=== PATIENT | female | born 1985 | race Caucasian/White ===

== ENCOUNTER 2018-03-02 17:36 | Emergency (ER) | payer MEDICAID, SELFPAY ==
[2018-03-02 17:37] VITALS: BP 161/96; PULSE 107; RESP 20; TEMP 37.2; O2SAT 100; BMI 35.9
[2018-03-02 17:48] VITALS: O2SAT 100
--- NOTE | 2018-03-02 17:49 | RAD_ITS ---
STUDY: X-RAY CHEST REASON FOR EXAM: Female, 33 years old. Chest pain. TECHNIQUE: PA and lateral views of the chest. COMPARISON: November 16, 2015 FINDINGS: The lungs are clear and expanded. There is no demonstrated pleural abnormality. Normal size heart. Normal mediastinum and edvin. Normal visualized pulmonary arteries. Normal visualized aortic arch and descending thoracic aorta. There are diffuse degenerative changes of the visualized thoracic spine. Normal visualized ribs, clavicles, and shoulders. There is no demonstrated abnormality of the visualized soft tissue structures of the upper abdomen. RAD/Chest PA and Lateral IMPRESSION: No acute cardiopulmonary process. Electronically Signed: Nighat Jain MD at 18:15 EDT Tel , Service support ,
[2018-03-02] MEDS: Albuterol 2.5 MG/3 ML VIAL.NEB. INHALATION (18:08)
[2018-03-02 18:09] VITALS: PULSE 106; RESP 16
--- NOTE | 2018-03-02 18:12 | ED.DCSUM_ITS ---
- ER Visit Summary Date of Service: 03/02/18 Chief Complaint: Shortness of breath History of Present Illness: The patient is a 33 F who states that she has been short of breath all day since yesterday. She states is better when she stands up. She feels like she cannot catch her breath when she sits down. Denies a cough or chest pain. She felt like she was wheezing at some point. No history of asthma or COPD. She is a smoker. She did nothing for this at home. No DVT or PE risk factors. Denies any leg swelling. She does complain of some right paraspinal neck tenderness to palpation. Physical Examination: Vital signs reviewed. HEENT exam unremarkable. Does have some right-sided trapezius tenderness. Heart is regular rate and rhythm without murmurs. Lungs are clear to auscultation. Abdomen is soft and nontender. Extremities reveal no edema. Skin exam normal. Neurologic exam normal. Test Results: Chest x-ray and d-dimer are normal Emergency Department Course and Treatment: Patient was given albuterol treatment without any significant relief. I believe that some of her shortness of breath may be anxiety related. She was tearful when the nurse was in the room. I have no suspicion for PE as her d-dimer is normal. No signs of pneumonia. Her lung sounds are actually clear. I will give her an inhaler that she may use if she gets short of breath. She will use NSAIDs over-the- counter for her trapezius strain. She needs to follow-up with her PCP for further outpatient testing Treatment Plan: [] Disposition: Discharge Impression: Dyspnea, trapezius strain This note was generated with [employer] dictation software. It may contain incorrect words, spelling, and punctuation that were not noted in review of the chart prior to signing ED Disposition - Plan for ED Patient: Chief Complaint: Shortness of Breath Referrals: Praveen Neal MD [Primary Care Provider] -
[2018-03-02] MEDS: LORazepam 1 MG Tablet PO (18:22)
[2018-03-02 18:52] LABS: D-Dimer Quantitative (DVT/PE) 0.41 FEU/ug/m (0.27-0.49)
--- NOTE | 2018-03-02 19:00 | ED.DEP ---
ED Disposition - Plan for ED Patient: Disposition: Home or Assisted Living Chief Complaint: Shortness of Breath Instructions: ED Dyspnea Shortness of Breath Prescriptions: Albuterol Inhaler [Ventolin Hfa] 1 - 2 puff INHALATION Q4H PRN PRN #1 inhaler PRN Reason: Wheezing Referrals: Praveen Neal MD [Primary Care Provider] -
[2018-03-02 19:18] VITALS: PULSE 81; RESP 18; O2SAT 100
== END 2018-03-02 19:19 | disposition home or self-care (01) ==
PROVIDERS: Emergency Provider Emergency Medicine; Family Provider Family Medicine; PCP Family Medicine
DX: R06.00 Dyspnea, unspecified (principal); S16.1XXA Strain of muscle, fascia and tendon at neck level, initial encounter; F17.200 Nicotine dependence, unspecified, uncomplicated; X58.XXXA Exposure to other specified factors, initial encounter; Y93.89 Activity, other specified; Y92.89 Other specified places as the place of occurrence of the external cause; Y99.8 Other external cause status
CPT/HCPCS: 71046; 85379; 94640; 99283; A4216

== ENCOUNTER 2019-01-22 19:16 | Emergency (ER) | payer MEDICAID, SELFPAY ==
[2019-01-22 19:17] VITALS: BP 125/86; PULSE 86; RESP 16; TEMP 36.4; O2SAT 100; BMI 34.9
--- NOTE | 2019-01-22 20:41 | ED.DCSUM_ITS ---
History of Present Illness Chief Complaint: Abscess Narrative: Patient presented secondary to facial abscess and multiple body lesions. Patient reports over the course last 24 hours she has had emergence of a left- sided simmons infection. She also reports that she has a left gluteal area that appears to be infected. She was seen in outside facility and was started on Bactrim. Patient reports over the course last 24 hours however she has had increase in the swelling especially of her left simmons. She denies any cons titutional symptoms such as fever. Pain is moderate worse with palpation and with opening closing of her mouth. She denies any trismus. Review of systems otherwise negative. Past Medical History - Allergies and Home Meds Allergies/Adverse Reactions: Allergies No Known Allergies Allergy (Verified 03/02/18 17:37) Primary Care Physician: Praveen Neal MD [Primary Care Provider] - 2 Days for wound check Surgical History: noncontributory Smoking Status: Current every day smoker Review of Systems All systems negative except as indicated General: Denies: Fever Skin: Reports: Abscess Physical Exam Vital Signs/Narrative: Vital Signs Temp Pulse Resp BP Pulse Ox 01/22/19 19:17 97.6 F L 86 16 125/86 H 100 Inital Vital Signs reviewed: Yes General: Well nourished, Well developed, No Acute Distress Head: Normocephalic, Atraumatic, - - Induration noted at the patient's left chin with a small area of fluctuance and overlying erythema. ENT: Moist mucous membranes, No rhinorrhea Neck: Supple, Nontender Cardiovascular: Regular rate, Regular rhythm, No murmurs Respiratory: No distress, CTA bilaterally, Chest nontender : - - Examination the patient's left gluteal cleft shows evidence of an area of induration with mild overlying erythema, no fluctuance Skin: Rash Neurological: Alert Diagnostic/Tx/Re-eval - Medical Decision Making Patient presented secondary to a chin abscess. Bedside ultrasound was obtained and did show an area of fluctuance. Incision and drainage was was performed as noted in the procedure note. Patient seems to have colonization likely with staff, she was given Bactroban ointment to be used on top of her Bactrim. She was recommended warm compresses. Patient was discharged with follow-up with primary care. Procedures Procedure(s): Patient was verbally consented for incision and drainage of abscess to the left side of her chin. Area was prepped with an alcohol prep. The area of greatest fluctuance was incised using a very small stab incision using an 11 blade. Purulent material was expressed. Loculations were broken with hemostats. Patient tolerated this well. ED Disposition - Plan for ED Patient: Disposition: Home or Assisted Living Diagnosis: Facial abscess Instructions: ED Skin Infec MRSA Suspect Conf Prescriptions: Mupirocin [Bactroban] 1 applic TOPICAL TID #1 tube Referrals: Praveen Neal MD [Primary Care Provider] - 2 Days for wound check
[2019-01-22 20:53] VITALS: PULSE 79; RESP 20
== END 2019-01-22 20:54 | disposition home or self-care (01) ==
PROVIDERS: Emergency Provider Emergency Medicine; Family Provider Family Medicine; PCP Family Medicine
DX: L02.01 Cutaneous abscess of face (principal); F17.200 Nicotine dependence, unspecified, uncomplicated
CPT/HCPCS: 10060; 99283

== ENCOUNTER 2019-01-25 20:33 | Emergency (ER) | payer MEDICAID, SELFPAY ==
[2019-01-25 20:34] VITALS: BP 120/86; PULSE 90; RESP 16; TEMP 36.7; O2SAT 99; BMI 35.4
--- NOTE | 2019-01-25 21:02 | CT_ITS ---
STUDY: CT BRAIN WITHOUT CONTRAST REASON FOR EXAM: Female, 33 years old. Facial left-sided numbness RADIATION DOSAGE (If Supplied By Facility): CTDIvol = ( 44.99 ) mGy, DLP = ( 762.36 ) mGycm TECHNIQUE: Transaxial CT imaging of the brain was performed without administration of intravenous contrast material. Individualized dose optimization techniques were used for this CT. COMPARISON: No relevant priors. FINDINGS: Normal soft tissue structures. Normal calvarium. Normal size ventricles and extra-axial spaces for the patient's age. Normal white matter tracts of the cerebral hemispheres. Normal basal ganglia and thalami. Normal brainstem. Normal cerebellum. There is no intracranial hemorrhage. There are no findings of an acute ischemic infarction. Normal visualized paranasal sinuses. CT/Brain/Head without Contrast IMPRESSION: Normal unenhanced CT scan of the brain. Electronically Signed: Francois Bruno, at 22:29 EDT Tel , Service support ,
--- NOTE | 2019-01-25 21:02 | EKG12_ITS ---
Test Reason : CP Blood Pressure : / mmHG Vent. Rate : 099 BPM Atrial Rate : 099 BPM P-R Int : 114 ms QRS Dur : 084 ms QT Int : 362 ms P-R-T Axes : 032 051 052 degrees QTc Int : 464 ms Normal sinus rhythm Normal ECG Confirmed by JARROD BAKER, TARAN ([id number]), managing editor GERI WADSWORTH ([id number]) on 01/29/2019 11:47:23 AM Referred By: Confirmed By:LIZETTE GARAY MD
--- NOTE | 2019-01-25 21:10 | RAD_ITS ---
STUDY: X-RAY CHEST REASON FOR EXAM: Female, 33 years old. Chest pain TECHNIQUE: Portable chest COMPARISON: 03/02/2018 FINDINGS: The lungs are clear and expanded. There is no demonstrated pleural abnormality. There is mild left ventricular prominence. Normal mediastinum and edvin. Normal visualized pulmonary arteries. Normal visualized aortic arch and descending thoracic aorta. Normal visualized thoracic spine. Normal visualized ribs, clavicles, and shoulders. There is no demonstrated abnormality of the visualized soft tissue structures of the upper abdomen. RAD/Chest 1 View (Portable) IMPRESSION: Mild left ventricular prominence Electronically Signed: Francois Bruno, at 22:06 EDT Tel , Service support ,
[2019-01-25] MEDS: LORazepam 2 MG/ML Syringe 1 MG IV (21:24)
[2019-01-25] MEDS: Ketorolac 30 MG/ML Syringe IV (21:26)
[2019-01-25] MEDS: 0.9% Normal Saline 1,000 ML 1000 ML IV (21:28)
[2019-01-25 21:40] LABS: Absolute Lymphocyte Count 2.38 X10^3/ul (0.83-4.51); Absolute Neutrophil Count 6.3 X10^3/uL (2.0-7.7); Basophil# 0.04 X10^3/uL; Basophil% 0.4 % (0-1); Eosinophil# 0.26 X10^3/uL; Eosinophils% 2.7 % (0-5); Hemoglobin 10.7 g/dl (12.0-15.0); Lymphocyte # 2.38 X10^3/ul (4.0); Lymphocyte % 24.4 % (19-41); Mean Corp Hgb Conc 31.5 g/gl (32-36); Mean Corpuscular Hgb 25.8 pg (27.0-32.0); Mean Corpuscular Volume 82.1 fL (81-99); Mean Platelet Vol. 9.7 fl (6.2-12.0); Monocyte# 0.74 X10^3/uL; Monocyte% 7.6 % (0-10); Neutrophil # 6.29 X10^3/uL (2.7-7.7); Neutrophil % 64.5 % (47-70); POSITIVE COUNT NO; POSITIVE DIFFERENTIAL NO; POSITIVE MORPHOLOGY NO; Platelet Count 453 K/mm3 (150-450); RBC Distribution Width CV 15.4 % (11.6-14.6); RBC Distribution Width SD 45.9 fl (35.1-43.9); Red Blood Count 4.14 M/mm3 (4.2-5.4); White Blood Count 9.8 K/mm3 (4.4-11.0)
[2019-01-25 21:51] VITALS: PULSE 93; RESP 16; O2SAT 98
[2019-01-25 21:53] LABS: Anion Gap 5 (5-15); BUN 17 mg/dL (7-18); Calcium,Total 9.1 mg/dL (8.5-10.1); Chloride 104 mmol/L (98-107); Creatinine, Serum 0.94 mg/dL (0.55-1.02); EST Glomerular Filtration Rate 71 mL/min (>60); Est Glom Filt Rate - Afr Amer 86 mL/min (>60); Estimated Creatinine Clearance 63.03 ml/min; Glucose 83 mg/dL (74-106); Sodium Level 137 mmol/L (136-145)
[2019-01-25] MEDS: Morphine 4 MG/ML Syringe IV (22:56)
--- NOTE | 2019-01-25 23:17 | ED.DCSUM_ITS ---
- ER Visit Summary Date of Service: 01/25/19 Chief Complaint: Facial abscess History of Present Illness: The patient is a [address] Praveen Neal. She reports that she has an abscess to her chin that began 4 days ago. She was seen in the emergency department 3 days ago and had an I&D performed. She was placed on Bactrim. She reports that the area feels like it is enlarging again. She complains of a sharp pain that is 10 out of 10 severity. Is worsened by nothing relieved by nothing. She denies any dental pain. No fever or chills. On review of systems patient complains that she has a sharp chest pain that began approximately 30 minutes ago while she was at rest. Is 8 out of 10 severity. Nothing makes this worse including exertion and deep breaths. Nothing makes this better. She does report that she is mildly short of breath with it. She denies any associated vomiting or diaphoresis. She reports that she feels nauseated, but relates that to the Bactrim. Patient also complains that she has paresthesias to the entire left side of her body. This includes her face, upper and lower extremities, chest, and abdomen. Physical Examination: Vitals: Stable. Afebrile. General: Well-nourished and well-developed. Head: Normocephalic atraumatic. Neck: Supple, no lymphadenopathy. No JVD. Nontender. Cardiovascular: Regular rate and rhythm. No murmurs. Respiratory: No respiratory distress. Clear to auscultation bilaterally. Abdominal: Soft, nontender, nondistended, normal bowel sounds. No guarding, rebound, or peritoneal signs. Back: Nontender. Extremities: Nontender, no edema. Skin: To the left side of her chin there is a 3 cm indurated, erythematous area with no appreciable fluctuance. She also has a 2 cm indurated area with minimal erythema to her left buttock.. Neurologic: Alert and oriented ?3. Cranial nerves II through XII are intact. N ormal strength and sensation. Despite the fact the patient complains of tingling in her simmons to light touch is normal. Psych: Depressed affect and tearful. Anxious. Denies suicidal or homicidal soraida ation. No auditory visual hallucinations. Test Results: EKG is sinus at 99 with no acute changes. CBC shows an H&H of 10.7 34.0, platelets 453. Chem-[address] brain is normal. Chest x-ray shows no acute disease. Emergency Department Course and Treatment: Patient was initially given a dose of Toradol and Ativan IV. Prior to her incision and drainage she was given dose of morphine IV. She was also given doxycycline IV. She is resting comfortably. Treatment Plan: With the abscess being on the patient's face she will be discharged instructions to follow-up with Dr. Pavon in 4 days for another exam. She will be switched from Bactrim to doxycycline. Given a prescription for 12 Percocet. Return to the emergency department for any worsening symptoms. Disposition: To home in improved and stable condition. Impression: 1 1. Abscess to chin. 2. Abscess to left buttock. 3. Incision and drainage. 4. Anxiety. Procedure Note: Abscess was cleansed with chlorhexidine soap. Anesthetized with 1% lidocaine without epinephrine. An incision was made with an 11 scalpel blade. A moderate amount of pus was drained. Curved hemostats were used to break up loculations. The wound was copiously irrigated with normal saline. It was loosely packed with iodoform gauze. The patient tolerated it well. This note was generated with [employer] dictation software. It may contain incorrect words, spelling, and punctuation that were not noted in review of the chart prior to signing ED Disposition - Plan for ED Patient: Instructions: ABSCESS, Incision and Drainage Prescriptions: Doxycycline 100 mg PO BID #20 capsule Oxycodone HCl/Acetaminophen [Percocet 5/325] 1 tablet PO Q6H PRN PRN 3 Days #12 tablet PRN Reason: Pain Referrals: Praveen Neal MD [Primary Care Provider] - 2 Days for wound check Miguelito Pavon MD [STAFF PHYSICIAN] - 3-5 Days
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
== END 2019-01-26 00:56 | disposition home or self-care (01) ==
PROVIDERS: Emergency Provider Emergency Medicine; Family Provider Family Medicine; PCP Family Medicine
DX: L02.01 Cutaneous abscess of face (principal); L02.31 Cutaneous abscess of buttock; F41.9 Anxiety disorder, unspecified; F90.9 Attention-deficit hyperactivity disorder, unspecified type; Z87.442 Personal history of urinary calculi; Z72.0 Tobacco use; Z79.899 Other long term (current) drug therapy
CPT/HCPCS: 10060; 70450; 71045; 80048; 85025; 93005; 96365; 96366; 96375; 99285; J7030; A4216

== ENCOUNTER 2020-02-24 09:17 | Emergency (ER) | payer MEDICAID, SELFPAY ==
[2020-02-24 09:19] VITALS: BP 158/75; PULSE 91; RESP 18; TEMP 36.4; O2SAT 98; BMI 41.0
[2020-02-24 09:33] VITALS: BP 134/83; PULSE 89; RESP 17; O2SAT 99
[2020-02-24 09:34] VITALS: O2SAT 99
--- NOTE | 2020-02-24 09:47 | EKG12_ITS ---
Test Reason : Blood Pressure : / mmHG Vent. Rate : 085 BPM Atrial Rate : 085 BPM P-R Int : 118 ms QRS Dur : 088 ms QT Int : 396 ms P-R-T Axes : 035 033 -04 degrees QTc Int : 471 ms Normal sinus rhythm Normal ECG Confirmed by JOSE BAKER, TRISTEN ([id number]), editor school photograph HOLLY STEWART ([id number]) on 02/27/2020 9:01:50 AM Referred By: ZAHRA Confirmed By:TRISTEN GARCIA MD
--- NOTE | 2020-02-24 09:47 | RAD_ITS ---
STUDY: X-RAY CHEST REASON FOR EXAM: Female, 35 years old. SOB, CP, BODY ACHES -- X 3 DAYS TECHNIQUE: AP upright portable view. COMPARISON: 01/25/2019. FINDINGS: Pulmonary hypoinflation. The lungs remain clear. There is no demonstrated pleural abnormality. Normal size heart. Normal mediastinum and edvin. Normal visualized pulmonary arteries. Normal visualized aortic arch and descending thoracic aorta. Normal visualized thoracic spine. Normal visualized ribs, clavicles, and shoulders. There is no demonstrated abnormality of the visualized soft tissue structures of the upper abdomen. RAD/Chest 1 View (Portable) IMPRESSION: Normal limited inspiratory chest and unchanged when compared to 01/25/2019. Electronically Signed: Vamshi Garza MD at 11:07 EDT , Service support ,
--- NOTE | 2020-02-24 09:48 | ED.DCSUM_ITS ---
- ER Visit Summary Date of Service: 02/24/20 Chief Complaint: Right-sided chest pain History of Present Illness: The patient is a 35 F daily and kidney stones. Prior cholecystectomy and C-sections. They states her last 3 days she has had some right-sided chest discomfort with mild shortness of breath. No cough or fever. Said she had nausea vomiting x1. She describes it as a burning pain. There is no significant family history of cardiac disease at a young age other than one uncle. She has had no recent travel surgery or hospitalization. No hemoptysis. There is no family history of clotting disorder or DVT or PEs. She is never had a DVT or PE. She denies any calf pain or swelling. Physical Examination: Middle-aged female no acute distress vital signs are stable afebrile. Pulse ox 9 9% on room air no signs hypoxia. H EENT exam unremarkable. Neck nontender no lymphadenopathy no JVD. Lungs clear to auscultation bilaterally. Heart regular rate and rhythm no murmur rate about 85. Chest wall nontender. Abdomen soft nontender normal bowel sounds no peritoneal signs. Extremities moves all 4. Calves are nontender without edema or cords. 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 Normal dorsi plantarflexion. Equal symmetrical radial pulses. Back nontender. Neurologically she is awake alert with no focal motor deficits. Test Results: EKG shows a normal sinus rhythm rate 85 with no acute signs of SC or ischemia. No changes from prior EKG from November 2015. Chest x-ray 1 view shows no acute abnormality. Normal cardiac silhouette mediastinum. EKG shows a sinus rhythm rate 85 with no acute signs of SC or ischemia and unchanged from prior EKG from 2016. CBC unremarkable other than chronic anemia hemoglobin 10 which she has had before in the past. Chemistries unremarkable normal creatinine gap. Troponin normal. D-dimer slightly elevated 0.5. For that reason and the atypical nature of her pain a CTA of the chest was obtained. Read by the radiologist and reviewed by me. No signs of acute PE nor dissection. Emergency Department Course and Treatment: Patient has atypical right-sided chest pain. She really has no risk factors for DVT or PE. She undergo cardiac work-up which might pre-test clinical suspicion is low. She is a smoker. I will do a d-dimer due to the pain being right-sided. Multiple repeat exams patient is doing well at 12:55 PM. We went over all of her test results. She will be discharged home. Treatment Plan: Motrin for pain. Follow-up with her primary care physician for further evaluation if not improving. Return to emergency department if feeling worse. Disposition: dc Impression: Acute atypical right-sided chest pain of uncertain etiology This note was generated with [employer] dictation software. It may contain incorrect words, spelling, and punctuation that were not noted in review of the chart prior to signing ED Disposition - Plan for ED Patient: Referrals: Praveen Neal MD [STAFF PHYSICIAN] -
[2020-02-24 10:06] VITALS: O2SAT 99
[2020-02-24 10:07] LABS: Absolute Lymphocyte Count 1.95 X10^3/uL (0.83-4.51); Absolute Neutrophil Count 6.5 X10^3/uL (2.0-7.7); Basophil# 0.05 X10^3/uL; Basophil% 0.5 % (0-1); Eosinophil# 0.38 X10^3/uL; Hematocrit 34.7 % (37-47); Hemoglobin 10.1 g/dL (12.0-15.0); Lymphocyte # 1.95 X10^3/ul (4.0); Lymphocyte % 20.8 % (19-41); Mean Corp Hgb Conc 29.1 g/dL (32-36); Mean Corpuscular Hgb 21.1 pg (27.0-32.0); Mean Corpuscular Volume 72.6 fL (81-99); Mean Platelet Vol. 8.9 fl (6.2-12.0); Monocyte# 0.44 X10^3/uL; Monocyte% 4.7 % (0-10); NRBC Flagged by Analyzer 0 % (0-5); Neutrophil # 6.51 X10^3/uL (2.7-7.7); Neutrophil % 69.4 % (47-70); Platelet Count 484 K/mm3 (150-450); RBC Distribution Width CV 16.9 % (11.6-14.6); RBC Distribution Width SD 43.7 fl (35.1-43.9); Red Blood Count 4.78 M/mm3 (4.2-5.4); White Blood Count 9.4 K/mm3 (4.4-11.0)
[2020-02-24 10:33] LABS: Anion Gap 7 (5-15); BUN 14 mg/dL (7-18); Chloride 106 mmol/L (98-107); Creatinine, Serum 0.78 mg/dL (0.55-1.02); EST Glomerular Filtration Rate 89 mL/min (>60); Est Glom Filt Rate - Afr Amer 107 mL/min (>60); Estimated Creatinine Clearance 74.52 ml/min; Glucose 108 mg/dL (74-106); Potassium 3.9 mmol/L (3.5-5.1); Sodium Level 139 mmol/L (136-145)
--- NOTE | 2020-02-24 10:56 | CT_ITS ---
STUDY: CTA CHEST REASON FOR EXAM: Female, 35 years old. SOB, CP X 3 DAYS, NAUSEA, RADIATION DOSAGE (If Supplied By Facility): CTDIvol = ( 14.45 ) mGy, DLP = ( 485.36 ) mGycm TECHNIQUE: The examination was performed with the intravenous administration of IV 100mL Isovue-370. Post-processing of the angiographic images was performed, with multiplanar reformation and 3D reconstruction. Individualized dose optimization techniques were used for this CT. COMPARISON: Chest x-ray. FINDINGS: Normal enhancement of the main pulmonary artery and right and left pulmonary arteries. Normal enhancement of the bilateral peripheral pulmonary arteries. There is no demonstrated pulmonary embolism. Normal thoracic aorta and visualized great vessels. There is no demonstrated aortic dissection. Normal heart and pericardium. Normal mediastinum. Normal hilar regions. Normal visualized trachea and bronchi. The lungs are well expanded. Normal pulmonary parenchyma. Normal pleura. Normal chest wall structures. Mild degenerative change of the spine. Normal visualized upper abdomen. CT/CTA Chest W/WO Contrast IMPRESSION: Normal CTA chest examination, without a demonstrated pulmonary embolism or arterial dissection. Electronically Signed: Ed Nettles MD at 12:23 EDT , Service support ,
[2020-02-24 11:21] VITALS: BP 115/71; PULSE 84; RESP 18; O2SAT 100
--- NOTE | 2020-02-24 12:57 | ED.DEP ---
ED Disposition - Plan for ED Patient: Disposition: Home or Assisted Living Instructions: ED Chest Pain Atypical Unkn Cause Referrals: Praveen Neal MD [STAFF PHYSICIAN] - 3-5 Days if not improving Additional Instructions: Motrin for pain. Follow-up with your primary care physician if not improving. Return if feeling worse. All your tests, EKG, chest x-ray and CAT scan today were all unremarkable.
[2020-02-24 13:09] VITALS: BP 117/87; PULSE 81; RESP 14; O2SAT 99
== END 2020-02-24 13:10 | disposition home or self-care (01) ==
PROVIDERS: Emergency Provider Emergency Medicine; PCP Family Medicine
DX: R07.89 Other chest pain (principal); R06.00 Dyspnea, unspecified; Z72.0 Tobacco use
CPT/HCPCS: 71045; 71275; 80048; 84484; 85025; 85379; 93005; 99284; Q9967

== ENCOUNTER 2020-03-10 02:44 | Emergency (ER) | payer MEDICAID, SELFPAY ==
[2020-03-10 02:46] VITALS: BP 143/98; PULSE 98; RESP 22; TEMP 36.8; O2SAT 98; BMI 41.1
--- NOTE | 2020-03-10 02:47 | ED.VIS.GEN ---
History of Present Illness Chief Complaint: Allergic Reaction Informant: Patient Narrative: Patient presents for evaluation after having a reaction to a spray she used for lice. She states the brand name was read. She states that she sprayed it on her living room furniture. She did not know she was not supposed to spread on her bed sheets. She states that she was initially fine. She got up to wash her hair with the raid brand shampoo and that is when she noticed that her face was burning. She also states her skin is burning on her back. She states that her eyes are burning and her tongue is stinging. Did irrigate her eyes. She also washed all of the spray off of her and cleaned her hair again. Past Medical History - Allergies and Home Meds Allergies/Adverse Reactions: Allergies No Known Allergies Allergy (Verified 02/24/20 09:19) Primary Care Physician: Praveen Best MD [Primary Care Provider] - Prior records reviewed: Yes Surgical History: noncontributory Lives: With Family Smoking Status: Current every day smoker Drugs: None Review of Systems General: Denies: Chills, Fever, Malaise Eyes: Reports: - - Bilateral eye burning and injection ENT: Reports: - - Throat burning and tingling. Denies: Bilateral ear pain Cardiovascular: Denies: Chest pain, Palpitations Respiratory: Denies: Dyspnea, Cough Gastrointestinal: Denies: Abdominal pain, Nausea, Vomiting Genitourinary: Denies: Dysuria Skin: Reports: Rash Neurological: Denies: Headache, Weakness Allergy: Denies: Uticaria, Swelling of the mouth, Swelling of the tongue Physical Exam Inital Vital Signs reviewed: Yes General: Well nourished Head: Normocephalic Eyes: - - Bilateral sclera are injected. Eyes are watering. Neck: Supple, Nontender Cardiovascular: Regular rate, Regular rhythm Respiratory: No distress, CTA bilaterally Skin: Rash - Erythema to the face with some mild swelling around the eyes. Neurological: Alert, Oriented x3 Psychological: Normal affect Diagnostic/Tx/Re-eval - Medical Decision Making Presents with scleral injection she has concern she got either the bedding spray or the shampoo in her eyes and now her eyes are irritated. I did put tetracaine in her bilateral eyes. Exam is limited because the patient has a hard time keeping her eyes open to examine them. She said she felt foreign body sensation in the right eye. I did irrigate this with sterile saline. I attempted to look for a foreign body over the patient could not keep her eye open on the right exam. And open her bilateral eyes when not being examined. She was offered a slit-lamp examination with fluorescein however she does not think she will be able to tolerate this. Given her irritation in the right eye I will treat her as corneal abrasion. She is given first dose of erythromycin ophthalmic here in the ED. She was given Acular eyedrops for home as well as Benadryl. Impression: #1 allergic reaction to RID spray/shampoo #2 probable corneal abrasion right eye ED Disposition - Plan for ED Patient: Disposition: Home or Assisted Living Diagnosis: Cornea abrasion Instructions: ED General Allergic Reactions, ED Corneal Abrasion Prescriptions: Ketorolac Tromethamine [Acular] 1 drp OP 4X/DAY PRN PRN #1 drops PRN Reason: pain Transmission Status: Pending to [id number] DiphenhydrAMINE [Benadryl] 25 mg PO BID PRN PRN #20 cap PRN Reason: Itching Transmission Status: Pending to [id number] Referrals: Praveen Best MD [Primary Care Provider] -
[2020-03-10] MEDS: DiphenhydrAMINE 12.5 MG/5 ML UDC 25 MG PO (03:01)
[2020-03-10] MEDS: Mag Hydrox/Al Hydrox/Simeth 30 ML UDC PO (03:02)
[2020-03-10] MEDS: Tetracaine 0.5% Ophthalmic Bottle 1 DRP EACH EYE (03:03)
--- NOTE | 2020-03-10 03:05 | ED.RN ---
pt c/o that something is in her eye. md attempted to flush her eye but pt refused. md offered to black light the eye and pt said she can not keep her eye open. Pt c/o it is painful
[2020-03-10] MEDS: Fluorescein 1 MG STRIP 1 STRIP RIGHT EYE (03:15)
--- NOTE | 2020-03-10 03:35 | ED.RN ---
Pt c/o eye pain md aware. oxyir ordered. Md offered again to flush or black light the eye but pt refused
[2020-03-10] MEDS: Erythromycin Base 1 OPTH.TUBE 1 APPLIC OPHTHALMIC (03:37)
[2020-03-10 03:38] VITALS: BP 134/78; PULSE 70; RESP 17; O2SAT 97
[2020-03-10] MEDS: oxyCODONE 5 MG Tablet PO (03:43)
== END 2020-03-10 03:50 | disposition home or self-care (01) ==
PROVIDERS: Emergency Provider Student in an Organized Health Care Education/Training Program; PCP Family Medicine
DX: T78.49XA Other allergy, initial encounter (principal); F17.200 Nicotine dependence, unspecified, uncomplicated
CPT/HCPCS: 99283; A4216

== ENCOUNTER 2021-04-14 00:05 | Emergency (ER) | payer MEDICAID, SELFPAY ==
[2021-04-14 00:07] VITALS: BP 124/86; PULSE 94; RESP 12; TEMP 37; O2SAT 99; BMI 40.7
[2021-04-14] MEDS: Ondansetron 4 MG/2 ML Vial IV (00:36)
--- NOTE | 2021-04-14 01:47 | EDS_ITS ---
HPI History of Present Illness Chief Complaint: Overdose Narrative Narrative: Patient presenting secondary to an accidental overdose. Patient reportedly had EMS dispatched because she became unresponsive after injecting something in a syringe. She did respond to Narcan. Patient tells me that she was injecting which she thought was methamphetamine. She did not believe that it was opiates. She denies that she was trying to injure herself. Patient reports that she feels nauseous she denies any other somatic symptoms currently. [facility] Medical History Anxiety Depression Substance abuse Allergy/AdvReac Type Severity Reaction Status Date / Time No Known Allergies Allergy Verified 02/24/20 09:19 Social History Smoking Status: Current every day smoker tobacco type: cigarettes ROS ROS ED Constitutional Constitutional ED: Denies chills, fever(s) or weight loss Eyes Eyes: Denies change in vision ENT ENT ED: Denies rhinorrhea or sore throat Cardiovascular Cardiovascular: Denies chest pain Respiratory/Chest Respiratory/Chest: Denies cough Gastrointestinal Gastrointestinal: Reports nausea Genitourinary Genitourinary ED: Denies dysuria Musculoskeletal Musculoskeletal: Denies myalgias Integumentary Denies rash Neurologic Neurologic: Denies paresthesias or weakness Psychiatric Psychiatric: Denies suicidal ideation Endocrine Endocrinology: Denies polydipsia or polyuria Hematologic/Lymphatic Hematologic/Lymphatic: Denies easy bleeding or easy bruising Allergic/Immunologic Allergic/Immunologic ED: Denies urticaria EXAM Physical Exam Const Vital Signs: 04/14/21 00:07 04/14/21 01:54 Temperature 98.6 F Temperature Source Temporal Pulse Rate 94 97 Respiratory Rate 12 16 Blood Pressure 124/86 H 163/88 H Blood Pressure Mean 98 Pulse Ox 99 100 Positive well nourished and well developed Constitutional Narrative: Patient is somewhat unkempt but otherwise not in physiologic distress General Appearance ED: well developed HEENT atraumatic; Negative for tenderness Eyes EOMs intact bilaterally General Eye ED: Negative for pale conjunctiva or scleral icterus Neck no lymphadenopathy and supple Chest Wall inspection of chest normal Resp normal respiratory effort and clear to auscultation bilaterally Cardio regular rhythm, no murmurs and peripheral pulses 2+ throughout Rate: tachycardic GI soft to palpation, non-tender, non-distended and no masses Extremity General Extremety ED: Negative for edema or tenderness General Extremity: Negative for edema Neuro oriented x3 and no sensory deficits noted Sensorium / Orientation: alert Motor Exam: strength 5/5 throughout Psych mental status grossly normal Psych Narrative: No suicidal homicidal ideations, no signs of hallucinations Skin Skin Narrative: Track sherwood are noted on the patient's left arm Lesions: no lesions Rashes: no rashes MDM MDM MDM Narrative Medical decision making narrative: Patient presented secondary to an accidental overdose. She was placed on continuous monitoring. She was not at risk for intentional overdose. She was observed over the course of around 2 hours, did not have any desaturation she was given Zofran for treatment of her symptoms. Repeat evaluation the patient does not wish to undergo drug rehab, detox, or treatment. I implored upon her the importance of seeking help. Patient was discharged in stable condition. Discharge Plan Triage Chief Complaint: Overdose ED Provider: Dusty Ho Dx/Rx/DC Orders Clinical Impression: Opiate overdose, Methamphetamine addiction Instructions: ED Drug Abuse, ED Overdose, Opiate Primary Care Provider: Praveen Best Referrals: Counseling,Center [GROUP OF PHYSICIANS] - As soon as possible Praveen Best MD [Primary Care Provider] - Activity Restrictions/Additional Instructions: You will from your drug addiction if you do not get some help. Please seek help soon before it is too late Disposition Disposition: Home, Self Care Discharge Date/Time: 04/14/21 01:54
[2021-04-14 01:54] VITALS: BP 163/88; PULSE 97; RESP 16; O2SAT 100
== END 2021-04-14 01:54 | disposition home or self-care (01) ==
PROVIDERS: Emergency Provider Emergency Medicine; PCP Family Medicine
DX: T43.621A Poisoning by amphetamines, accidental (unintentional), initial encounter (principal); F15.20 Other stimulant dependence, uncomplicated; F17.210 Nicotine dependence, cigarettes, uncomplicated
CPT/HCPCS: 96374; 99285; A4216; J2405

== ENCOUNTER 2021-07-12 03:11 | Emergency (ER) | payer MEDICAID, SELFPAY ==
[2021-07-12 03:13] VITALS: BP 159/123; PULSE 78; RESP 16; TEMP 36.8; O2SAT 100; BMI 35.7
--- NOTE | 2021-07-12 03:27 | RAD_ITS ---
STUDY: X-RAY CHEST REASON FOR EXAM: Female, 36 years old. chest pain TECHNIQUE: Single AP portable view of the chest. COMPARISON: 02/24/2020 FINDINGS: The lungs are clear and expanded. There is no demonstrated pleural abnormality. Normal size heart. Normal mediastinum and edvin. Normal visualized pulmonary arteries. Normal visualized aortic arch and descending thoracic aorta. Normal visualized thoracic spine. Normal visualized ribs, clavicles, and shoulders. There is no demonstrated abnormality of the visualized soft tissue structures of the upper abdomen. RAD/Chest 1 View (Portable) IMPRESSION: Normal x-ray examination of the chest. Electronically Signed: Domo Knox DO at 4:32 EST Tel , Service support ,
--- NOTE | 2021-07-12 03:29 | EKG12_ITS ---
Test Reason : CP Blood Pressure : / mmHG Vent. Rate : 076 BPM Atrial Rate : 076 BPM P-R Int : 128 ms QRS Dur : 084 ms QT Int : 426 ms P-R-T Axes : 057 038 047 degrees QTc Int : 479 ms Normal sinus rhythm Normal ECG Confirmed by JOSE BAKER, TRISTEN ([id number]), graphics editor HOLLY STEWART ([id number]) on 07/13/2021 10:19:02 AM Referred By: MARU Confirmed By:TRISTEN GARCIA MD
--- NOTE | 2021-07-12 03:35 | ED.VIS.GI ---
HPI HPI - GI History of Present Illness Chief Complaint: Abd Pain Narrative Narrative: 36-year-old female presenting with acute onset mid abdominal pain which is just above her umbilicus. She states this radiates upward. Patient states that prior to this she was well. She has some nausea but has not vomited. Patient states she had a regular bowel movement before she came in. She denies urinary complaints. She states she has a history of kidney stones but it does not feel like this. Also states she has a history of excessive gas trapping in her bowel and does not feel the same as this either. Patient has not had fever or chills. She has had 2 C-sections PFSH PFS Medical History Anxiety Depression HTN (hypertension) Substance abuse Home Medications gabapentin 300 mg PO TID 07/12/21 [History Last Taken Unknown] Allergy/AdvReac Type Severity Reaction Status Date / Time No Known Allergies Allergy Verified 07/12/21 03:17 Social History Smoking Status: Current every day smoker tobacco type: cigarettes ROS ROS ED Constitutional Constitutional ED: Denies chills or fever(s) ENT ENT ED: Denies rhinorrhea or sore throat Cardiovascular Cardiovascular: Denies chest pain or palpitations Respiratory/Chest Respiratory/Chest: Denies cough or dyspnea Gastrointestinal Gastrointestinal: Reports abdominal pain and nausea; Denies constipation, diarrhea or vomiting Genitourinary Genitourinary ED: Denies dysuria or hematuria Musculoskeletal Musculoskeletal: Denies arthralgias or myalgias Integumentary Denies abscess or rash Neurologic Neurologic: Denies headache(s) or paresthesias Psychiatric Psychiatric: Denies anxiety or depression EXAM Physical Exam Const Vital Signs: 07/12/21 03:13 07/12/21 05:37 Temperature 98.2 F Temperature Source Temporal Pulse Rate 78 84 Respiratory Rate 16 15 Blood Pressure 159/123 H 145/85 H Blood Pressure Mean 135 105 Pulse Ox 100 97 Oxygen Delivery Method Room Air Room Air Positive obese Constitutional Narrative: Appears older than her stated age General Appearance ED: NAD; Negative for pallor Nutritional Appearance: obese HEENT Reports moist mucous membranes normocephalic and atraumatic Eyes PERRL and EOMs intact bilaterally Resp normal respiratory effort and clear to auscultation bilaterally GI non-distended Palpation: soft and tender periumbilical Back/Spine no CVA tenderness Neuro CN's II-XII intact bilaterally and moves all extremities Sensorium / Orientation: alert, oriented to person, oriented to place and oriented to time Psych mental status grossly normal and thought process normal Skin General Skin Exam: Negative for jaundice or pallor Rashes: no rashes MDM MDM MDM Narrative Medical decision making narrative: Patient presenting with abdominal pain which she describes as just above the umbilicus and radiating upward. She has a history of abdominal pain and usually caused by gas or constipation. She states he has a history of kidney stones as well but she does not have any flank pain. Blood work is obtained and her CBC shows no leukocytosis. Her hemoglobin is 9.5 but this appears to be a chronic issue. She is not had any black or bloody stools. She not hypotensive or tachycardic either. CMP shows normal renal function and electrolytes. LFTs are normal. Lipase is negative. Urinalysis appears contaminated and I will send this for culture. She not have any urinary symptoms. Urine drug screen is positive for methamphetamine. Due to patient's previous visit which was for opioid overdose I did choose to treat her with Toradol and Zofran until I could find a verifiable source of pain. Her pain was well controlled with this and on reevaluation she is resting comfortably. She has no episodes of nausea or vomiting while she is in the ER. CT the abdomen pelvis is obtained and shows no acute intra-abdominal pathology however there does appear to believe a lot of stool and gas in the bowel. Patient was counseled of findings. At this point since she is comfortable I feel she is safe to be discharged home. She will follow-up outpatient to ensure resolution. Impression: 1. Abdominal pain Lab Data Attestation: I reviewed the patient's lab results. Labs: Laboratory Results - last 24 hr 07/12/21 07/12/21 07/12/21 04:00 04:00 04:00 WBC 9.4 RBC 4.48 Hgb 9.5 L Hct 32.7 L MCV 73.0 L MCH 21.2 L MCHC 29.1 L RDW Std Deviation 45.5 H RDW Coeff of [place] 17.4 H Plt Count 382 MPV 9.5 Immature Gran % (Auto) 0.300 Neut % (Auto) 72.6 H Lymph % (Auto) 17.0 L [place] % (Auto) 7.0 Eos % (Auto) 2.7 Baso % (Auto) 0.4 Absolute Neuts (auto) 6.8 Absolute Lymphs (auto) 1.59 Nucleated RBC % 0 Sodium 136 Potassium 4.5 Chloride 103 Carbon Dioxide 26.0 Anion Gap 7 BUN 17 Creatinine 0.72 Estim Creat Clear Calc 76.10 Est GFR (MDRD) Af Amer 117 Est GFR (MDRD) Non-Af 97 BUN/Creatinine Ratio 23.7 H Glucose 100 Calcium 8.7 Total Bilirubin 0.10 L AST 23 ALT 21 Alkaline Phosphatase 94 Troponin I High Sens 5 Total Protein 7.4 Albumin 3.3 Globulin 4.1 Albumin/Globulin Ratio 0.8 L Lipase 203 Urine Color Urine Clarity Urine pH Ur Specific [place] Urine Protein Urine Glucose (UA) Urine Ketones Urine Occult Blood Urine Nitrite Urine Bilirubin Urine Urobilinogen Ur Leukocyte Esterase Urine RBC Urine WBC Ur Squamous Epith Cells Ur Renal Epithelial Cell Urine Bacteria Urine Mucus Urine Test Urine Opiates Screen Urine Methadone Screen Ur Barbiturates Screen Ur Phencyclidine Scrn Ur Amphetamines Screen U Methamphetamin-MDMA U Benzodiazepines Scrn Urine Cocaine Screen U Cannabinoids Screen Ur Drug Screen Comment Ethyl Alcohol < 3.0 07/12/21 07/12/21 04:37 04:37 WBC RBC Hgb Hct MCV MCH MCHC RDW Std Deviation RDW Coeff of [place] Plt Count MPV Immature Gran % (Auto) Neut % (Auto) Lymph % (Auto) [place] % (Auto) Eos % (Auto) Baso % (Auto) Absolute Neuts (auto) Absolute Lymphs (auto) Nucleated RBC % Sodium Potassium Chloride Carbon Dioxide Anion Gap BUN Creatinine Estim Creat Clear Calc Est GFR (MDRD) Af Amer Est GFR (MDRD) Non-Af BUN/Creatinine Ratio Glucose Calcium Total Bilirubin AST ALT Alkaline Phosphatase Troponin I High Sens Total Protein Albumin Globulin Albumin/Globulin Ratio Lipase Urine Color Yellow Urine Clarity Sl. Cloudy Urine pH 6.0 Ur Specific [place] 1.025 Urine Protein 30 H Urine Glucose (UA) Normal Urine Ketones Negative Urine Occult Blood 50 H Urine Nitrite Negative Urine Bilirubin Negative Urine Urobilinogen Normal Ur Leukocyte Esterase 500 H Urine RBC 10-25 SEEN Urine WBC >100 SEEN Ur Squamous Epith Cells 10-25 SEEN Ur Renal Epithelial Cell 0-5 SEEN Urine Bacteria 2+ Urine Mucus 1+ Urine Test Negative Urine Opiates Screen NEGATIVE Urine Methadone Screen NEGATIVE Ur Barbiturates Screen NEGATIVE Ur Phencyclidine Scrn NEGATIVE Ur Amphetamines Screen POSITIVE H U Methamphetamin-MDMA POSITIVE H U Benzodiazepines Scrn NEGATIVE Urine Cocaine Screen NEGATIVE U Cannabinoids Screen NEGATIVE Ur Drug Screen Comment Ethyl Alcohol Radiography Diagnostic Testing: Clinical Impression(s) from Imaging Studies Chest X-Ray 07/12/21 03:27 IMPRESSION: Normal x-ray examination of the chest. Electronically Signed: Domo Knox DO at 4:32 EST Tel , Service support , Abdomen/Pelvis CT 07/12/21 04:21 IMPRESSION: No evidence of acute intra-abdominal abnormality. Individualized dose optimization techniques were used for this CT. at 0603 Reported and signed by: Emeterio Baxter MD Electronically Signed: Emeterio Baxter MD at 6:02 EST Tel , Service support , Discharge Plan Triage Chief Complaint: Abd Pain ED Provider: Rex Bee Dx/Rx/DC Orders Instructions: ED Abdominal Pain Unkn Cause Fem Prescriptions: No Action gabapentin 300 mg Tablet 300 mg PO TID RF: 0 Primary Care Provider: Care Physician,No Primary Referrals: Care Physician,No Primary [Primary Care Provider] - Disposition Disposition: Home, Self Care
[2021-07-12] MEDS: Ondansetron 4 MG/2 ML Vial IV (04:08)
[2021-07-12] MEDS: Ketorolac 15 MG/ML Vial IV (04:10)
[2021-07-12 04:13] LABS: Absolute Lymphocyte Count 1.59 X10^3/uL (0.83-4.51); Absolute Neutrophil Count 6.8 X10^3/uL (2.0-7.7); Basophil# 0.04 X10^3/uL; Basophil% 0.4 % (0-1); Eosinophil# 0.25 X10^3/uL; Eosinophils% 2.7 % (0-5); Hematocrit 32.7 % (37-47); Hemoglobin 9.5 g/dL (12.0-15.0); Lymphocyte # 1.59 X10^3/ul (0.83-4.51); Mean Corp Hgb Conc 29.1 g/dL (32-36); Mean Corpuscular Hgb 21.2 pg (27.0-32.0); Mean Platelet Vol. 9.5 fl (6.2-12.0); Monocyte# 0.65 X10^3/uL; NRBC Flagged by Analyzer 0 % (0-5); Neutrophil # 6.79 X10^3/uL (2.7-7.7); Neutrophil % 72.6 % (47-70); Platelet Count 382 K/mm3 (150-450); RBC Distribution Width CV 17.4 % (11.6-14.6); RBC Distribution Width SD 45.5 fl (35.1-43.9); Red Blood Count 4.48 M/mm3 (4.2-5.4); White Blood Count 9.4 K/mm3 (4.4-11.0)
--- NOTE | 2021-07-12 04:21 | CT_ITS ---
HISTORY: abdominal pain EXAMINATION: CT Abdomen And Pelvis W/ Contrast Injection TECHNIQUE: Helically acquired images were obtained of the abdomen and pelvis following IV contrast. A radiation dose optimization technique was used for this scan. IV Contrast dosage and agent: 100mL Isovue-300 Oral contrast: None. COMPARISON: Unenhanced CT abdomen and pelvis from 03/18/17 FINDINGS: LOWER CHEST: Lung bases with no acute findings. Visualized heart normal size. LIVER: No concerning lesion. GALLBLADDER AND BILIARY TREE: Status post cholecystectomy. No significant biliary ductal dilation. KIDNEYS AND URETERS: Normal renal size. No concerning lesion. There is no perinephric inflammation or hydronephrosis. ADRENAL GLANDS: Non-enlarged. SPLEEN: Normal size without discrete mass. PANCREAS: No discrete mass or peripancreatic inflammation. BOWEL: Normal appendix posteromedial to the cecum within right lower quadrant. No bowel obstruction, focal bowel inflammation or significant bowel thickening. LYMPH NODES: No enlarged mesenteric or retroperitoneal lymph nodes. PERITONEUM: Trace physiologic fluid within posterior cul-de-sac. No free air or abscess. VESSELS: Major vessels are normal caliber and unremarkable. URINARY BLADDER: Unremarkable. REPRODUCTIVE ORGANS: No pelvic mass or large adnexal cyst. Tubal ligation clips noted. ABDOMINAL WALL: Stable mild lower abdominal wall rectus diastasis with a very small ventral fat hernia. Overlying scar. BONES: Intact with no suspicious osseous lesion. CT/Abdomen/Pelvis W IV Cont ONLY IMPRESSION: No evidence of acute intra-abdominal abnormality. Individualized dose optimization techniques were used for this CT. at 0603 Reported and signed by: Emeterio Baxter MD Electronically Signed: Emeterio Baxter MD at 6:02 EST Tel , Service support ,
[2021-07-12 04:48] LABS: Alcohol, Blood (Medical)-Serum < 3.0 mg/dL
[2021-07-12 04:51] LABS: ALB/GLOB Ratio 0.8 RATIO (0.9-2.4); AST(SGOT) 23 U/L (15-37); Alanine Aminotransfer ALT/SGPT 21 U/L (13-56); Albumin, Serum 3.3 g/dL (3.2-5.0); Alkaline Phosphatase 94 U/L (45-117); Anion Gap 7 (5-15); BUN 17 mg/dL (7-18); BUN/Creat Ratio 23.7 RATIO (10-20); Calcium,Total 8.7 mg/dL (8.5-10.1); Chloride 103 mmol/L (98-107); Creatinine, Serum 0.72 mg/dL (0.55-1.02); EST Glomerular Filtration Rate 97 mL/min (>60); Est Glom Filt Rate - Afr Amer 117 mL/min (>60); Globulin 4.1 g/dL (2.2-4.2); Glucose 100 mg/dL (74-106); Lipase 203 U/L (73-393); Potassium 4.5 mmol/L (3.5-5.1); Protein, Total 7.4 g/dL (6.4-8.2); Sodium Level 136 mmol/L (136-145); Troponin-I HS 5 pg/mL (3.0-54.0)
[2021-07-12 04:56] LABS: Color, Urine Yellow (Yellow); Glucose, Dipstick Normal (Normal); Ketone-Dipstick Negative (Negative); Leukocyte Esterase-Dipstick 500 /ul (Negative); Nitrite-Dipstick Negative (Negative); Occult Blood-Urine 50 /ul (Negative); Protein-Dipstick 30 mg/dl (Negative); Specific Gravity, Urine 1.025 (1.002-1.030); Urine Bilirubin Dipstick Negative (Negative); Urine Clarity Sl. Cloudy (Clear); Urine Urobilinogen Normal (Normal)
[2021-07-12 04:58] LABS: Internal QC Validated? YES +Cl - CLEAR BKGD; Pregnancy, Urine Negative Negative
[2021-07-12 05:10] LABS: Amphetamine Urine VISTA POSITIVE (<1000 ng/mL); Barbiturate Urine VISTA NEGATIVE (< 200 ng/mL); Benzodiazepine Urine VISTA NEGATIVE (< 200 ng/mL); Cocaine Urine VISTA NEGATIVE (< 300 ng/mL); Ecstacy Urine VISTA POSITIVE (< 500 ng/mL); Methadone Urine VISTA NEGATIVE (< 300 ng/mL); PCP Urine VISTA NEGATIVE (< 25 ng/mL); THC Urine VISTA NEGATIVE (< 50 ng/mL); Vista UDS pH Range 6
[2021-07-12 05:12] LABS: Bacteria 2+ /hpf (None Seen); Mucous, Urine 1+ /hpf (<or=2+); Red Blood Cells-Urine 10-25 SEEN /hpf (0-5); Renal Epithelial Cells 0-5 SEEN /hpf (0-5); Squamous Epithelial Cells - UA 10-25 SEEN /hpf (5-10); White Blood Cells >100 SEEN /hpf (0-5)
[2021-07-12 05:37] VITALS: BP 145/85; PULSE 84; RESP 15; O2SAT 97
[2021-07-12 06:16] VITALS: BP 152/86; PULSE 77; RESP 15
== END 2021-07-12 06:30 | disposition home or self-care (01) ==
PROVIDERS: Emergency Provider Student in an Organized Health Care Education/Training Program
DX: R10.33 Periumbilical pain (principal); I10 Essential (primary) hypertension; F17.210 Nicotine dependence, cigarettes, uncomplicated; E66.9 Obesity, unspecified
CPT/HCPCS: 71045; 74177; 80053; 80307; 81001; 81025; 82077; 83690; 84484; 85025; 87086; 87088; 93005; 96361; 96374; 96375; 99285; J7040; Q9967; A4216; J2405